=== PATIENT | male | born 1960 | race Caucasian/White ===

== ENCOUNTER 2021-06-21 12:07 | Emergency (ER) | payer OTHER ==
[2021-06-21 12:49] VITALS: BP 114/75; PULSE 90; TEMP 97.9; BMI 23.1
[2021-06-21] MEDS ORDERED: ACETAMINOPHEN 500 MG TABLET (FP) PO ONE (13:08)
[2021-06-21] MEDS ORDERED: CYCLOBENZAPRINE HCL 10 MG TABLET (FP) PO ONE (13:08)
[2021-06-21] MEDS ORDERED: ACETAMINOPHEN 500 MG TABLET (FP) ONE (13:13)
[2021-06-21] MEDS ORDERED: CYCLOBENZAPRINE HCL 10 MG TABLET (FP) ONE (13:13)
== END 2021-06-21 14:10 | disposition home or self-care (01) ==
LOC: JERFT 12:07 → JER 12:07 → JERFT 14:10
DX: M54.2 Cervicalgia (principal); M54.5 Low back pain
CPT/HCPCS: 72050-TC-FY; 72100-TC-FY; 99284-25